=== PATIENT | male | born 1995 | race Caucasian/White ===

== ENCOUNTER 2018-06-15 15:57 | Emergency (ER) | payer OTHER ==
--- NOTE | 2018-06-15 16:24 | ED Physician Documentation ---
General Adult - HISTORIAN Historian: patient - HPI Stated Complaint: NVD Chief Complaint: General Adult Additional Information: Nausea and vomiting for 2 weeks. 20 pound wt loss. Symptoms vary in intensity with emesis 3-5 times a day. Occasional diarrhea. Some days he feels less nausea and can eat. Knows he is about to throw up because his scalp is sensitive to touch and his right arm tingles. Urine x3 today which he says is typical for him. Says he got sicker 6 days ago after his roommates started using an air conditioner he believes is moldy. No other modifying factors or associated signs. - ROS CONST: weight loss. denies: fever - PAST HX Past History: none Surgeries/Procedures: none Allergies/Adverse Reactions: Allergies Allergy/AdvReac Type Severity Reaction Status Date / Time Penicillins Allergy Verified 06/15/18 16:12 Home Medications: Ambulatory Orders Medication Instructions Recorded Ondansetron HCl Rapdis [Zofran Odt] 4 mg PO Q6 PRN #10 tab 06/15/18 Propranolol HCl [Propranolol HCl 80 mg PO D 06/15/18 ER] - SOCIAL HX Smoking History: non-smoker - FAMILY HX Family History: No - VITAL SIGNS Vital Signs: Vital Signs Temp Pulse Resp BP Pulse Ox 96.3 F L 122 H 22 118/77 98 06/15/18 16:09 06/15/18 16:09 06/15/18 16:09 06/15/18 16:09 06/15/18 16:09 - REVIEWED ASSESSMENTS Nursing Assessment Reviewed: Yes Vitals Reviewed: Yes Progress - Progress Progress: Report Submission Date: Jun 15, 2018 4:45:17 PM CDT Patient Study Name: EMILY LARRY Date: Jun 15, 2018 4:22:59 PM CDT Modality Type: DX Gender: M Description: CHEST : 89 Institution: [facility] Physician: KAYLEY CAMPOS - HOLGER Examination: PA and lateral chest. History: Evaluate lung sun. N/V X2 WEEKS, PT STATES ABOUT 20LB WEIGHT LOSS IN 2 WEEKS (Hx) Findings: PA and lateral views of the chest demonstrates a normal cardiac and mediastinal silhouette. No focal infiltrate. No blunting of the costophrenic margins. Osseous structures are appropriate for age. Impression: No acute pulmonary process. Electronically signed on Jun 15, 2018 4:45:17 PM CDT by: Sanket Lockett ED Results Lab/Radiology - Orders Orders: ED Orders Category Date Time Status CHEST 2VIEW [RAD] Stat Exams 06/15/18 Ordered CBC/PLATELET/DIFF Routine Lab 06/15/18 Ordered CMP Routine Lab 06/15/18 Ordered DRUG SCREEN 8,URINE Stat Lab 06/15/18 Ordered URINALYSIS Routine Lab 06/15/18 Ordered NORMAL SALINE @ 1000 MLS/HR ( 1000ml BOLUS) Med 06/15/18 16:17 Ordered 0.9 % Sodium Chloride [Normal Saline] 1,000 ml IV Q1H Ondansetron HCl Rapdis [Zofran Odt] Med 06/15/18 16:18 Once 4 mg PO NOW ONE General Adult Physical Exam - PHYSICAL EXAM GENERAL APPEARANCE: no distress EENT: eye inspection normal, ENT inspection normal, pharynx normal (Mallampati 2), other (no pain with palpation of facial sinus areas) NECK: normal inspection, supple. No: lymphadenopathy RESPIRATORY: no resp distress, breath sounds normal CVS: reg rate & rhythm, heart sounds normal ABDOMEN: soft, normal bowel sounds, non-tender BACK: normal inspection, no CVA tenderness, other (no vertebral tenderness) SKIN: warm/dry, normal color EXTREMITIES: normal range of motion (gait and stance), no evidence of injury NEURO: CN's nml as tested, motor nml, sensation nml Discharge Clincal Impression: Nausea and vomiting Qualifiers: Vomiting type: unspecified Vomiting Intractability: non-intractable Qualified Code(s): R11.2 - Nausea with vomiting, unspecified Prescriptions: Ondansetron HCl Rapdis [Zofran Odt] 4 mg PO Q6 PRN #10 tab PRN Reason: Nausea / Vomiting Referrals: Primary Doctor,No [Primary Care Provider] - 2 Days Condition: Good Disposition: 01 HOME, SELF-CARE Decision to Admit: NO Decision Time: 18:40
[2018-06-15] MEDS: 0.9 % SODIUM CHLORIDE 1,000 ML IV ONE ×3 (16:45→17:30)
[2018-06-15] MEDS: ONDANSETRON HCL 4 MG TAB.RAPDIS PO ONE (16:46)
[2018-06-15] MEDS: ONDANSETRON HCL 4 MG TAB.RAPDIS ONE (16:47)
[2018-06-15 16:59] LABS: eGFR (Non-African) > 60
[2018-06-15] MEDS ORDERED: 0.9 % SODIUM CHLORIDE 1,000 ML IV ONE (17:10)
[2018-06-15 17:58] LABS: MCH. 27.5 pg (28.0-34.0); MCV 80.1 fL (80.0-100.0); PLATELET COUNT 233 thou/uL (130-400)
[2018-06-15 18:13] VITALS: BP 127/64
--- NOTE | 2018-06-15 19:38 | Diagnostic Imaging Report ---
KAYLEY CAMPOS [facility] [address] [facility] [address] [address] Report Submission Date: Jun 15, 2018 4:45:17 PM CDT Patient Study Name: EMILY LARRY Date: Jun 15, 2018 4:22:59 PM CDT Modality Type: DX Gender: M Description: CHEST : 89 Institution: [facility] Physician: KAYLEY CAMPOS Examination: PA and lateral chest. History: Evaluate lung sun. N/V X2 WEEKS, PT STATES ABOUT 20LB WEIGHT LOSS IN 2 WEEKS (Hx) Findings: PA and lateral views of the chest demonstrates a normal cardiac and mediastinal silhouette. No focal infiltrate. No blunting of the costophrenic margins. Osseous structures are appropriate for age. Impression: No acute pulmonary process. Electronically signed on Jun 15, 2018 4:45:17 PM CDT by: Sanket HAMLIN
[2018-06-16 09:34] LABS: APPEARANCE,URINE NOT DOCUMENTED (CLEAR); COLOR,URINE NOT DOCUMENTED (YELLOW); OCCULT BLOOD,URINE NEGATIVE (NEGATIVE); PH URINE 5.5 (5.0 - 8.0)
[2018-06-22 08:13] LABS: MONOCYTES % 8 % (0-11); SEGMENTED NEUTROPHILS % 33 % (39-79)
== END 2018-06-15 18:11 | disposition home or self-care (01) ==
LOC: ED 15:57
DX: R11.2 Nausea with vomiting, unspecified (principal)
CPT/HCPCS: 71046; 80053; 81002; 85025; A9270; J7030; 96365; 96366; S1016